=== PATIENT | male | born 1990 | race Caucasian/White ===

== ENCOUNTER 2019-06-24 11:10 | Emergency (ER) | payer BC, OTHER ==
[2019-06-24 11:37] LABS: Urine Appearance Clear; Urine Bilirubin Negative (Negative); Urine Blood Negative (Negative); Urine Color Straw; Urine Glucose Negative (Negative); Urine Ketones Negative (Negative); Urine Nitrite Negative (Negative); Urine Protein Negative (Negative); Urine Specific Gravity 1.003 (1.010-1.030); Urine Urobilinogen Negative (Negative)
--- NOTE | 2019-06-24 11:40 | ED ---
GI/ HPI - HPI Summary HPI Summary: 28-year-old male presents to the emergency department today complaining of gradual onset 1 out of 10 left posterior testicular pain when he noticed 4 days ago. Patient states she is in a long-term monogamous sexual relationship and does use protection. Patient believes he has a hernia although he denies any known recent event of considerable exertion, and has no history of hernia. Patient denies nausea or vomiting, penile discharge, fever, abdominal pain, chest pain, rash, vomiting, diarrhea. - History of Current Complaint Chief Complaint: EDUrogenitalProblems Time Seen by Provider: 06/24/19 11:33 Stated Complaint: TESTICULAR PAIN PER PT Hx Obtained From: Patient Onset/Duration: Started Days Ago Timing: Constant, Lasting Days Severity: Mild Current Severity: Mild Pain Intensity: 1 Additional Locations for Males: Testicles Pain Characteristics: Aching Associated Signs and Symptoms: Negative: Nausea, Vomiting, Hematuria, Flank Pain , New Sexual Partner, UTI Symptoms - Allergy/Home Medications Allergies/Adverse Reactions: Allergies Allergy/AdvReac Type Severity Reaction Status Date / Time erythromycin base Allergy GI Upset Verified 06/24/19 11:14 Home Medications: Home Medications NK [No Home Medications Reported] 11/22/12 [History Confirmed 06/24/19] PMH/Surg Hx/FS Hx/Imm Hx Infectious Disease History: No Infectious Disease History: Denies: Traveled Outside the [place] in Last 30 Days - Social History Alcohol Use: Weekly Substance Use Type: Reports: None Smoking Status (MU): Never Smoked Tobacco Review of Systems Constitutional: Negative Eyes: Negative ENT: Negative Cardiovascular: Negative Respiratory: Negative Gastrointestinal: Negative Genitourinary: Negative Musculoskeletal: Negative Skin: Negative Neurological/Mental Status: Negative Psychological: Normal All Other Systems Reviewed And Are Negative: Yes Physical Exam - Summary Physical Exam Summary: Physical exam a chaperoned by RNFranchesca. Genitalia was without lesions or obvious deformity. There is no tenderness with palpation of the testicles or evidence of varicocele. Patient complained of mild tenderness with palpation of the inferior posterior aspect of the left testicle. Patient had relief with support of the testicle. Cremasterics reflex present bilaterally. Triage Information Reviewed: Yes Vital Signs On Initial Exam: Initial Vitals Temp Pulse Resp BP Pulse Ox 98.4 F 79 16 163/106 100 06/24/19 11:12 06/24/19 11:12 06/24/19 11:12 06/24/19 11:12 06/24/19 11:12 Vital Signs Reviewed: Yes Appearance: Positive: Well-Appearing, No Pain Distress, Well-Nourished Skin: Positive: Warm, Skin Color Reflects Adequate Perfusion Eyes: Positive: EOMI, VALDEZ ENT: Positive: Hearing grossly normal Respiratory/Lung Sounds: Positive: Clear to Auscultation, Breath Sounds Present Cardiovascular: Positive: RRR, S1, S2 Abdomen Description: Positive: Nontender, Soft Bowel Sounds: Positive: Present Musculoskeletal: Positive: Strength/ROM Intact Neurological: Positive: Sensory/Motor Intact, Alert, Oriented to Person Place, Time, Normal Gait, Facial Symmetry, Speech Normal Psychiatric: Positive: Normal, Affect/Mood Appropriate AVPU Assessment: Alert Procedures - Sedation Patient Received Moderate/Deep Sedation with Procedure: No Diagnostics - Vital Signs Vital Signs Temp Pulse Resp BP Pulse Ox 06/24/19 11:12 98.4 F 79 16 163/106 100 - Laboratory Lab Results: Lab Results 06/24/19 06/24/19 Range/Units 11:15 11:15 Urine Color Straw Urine Appearance Clear Urine pH 8.0 (5-9) Ur Specific [place] 1.003 L (1.010-1.030) Urine Protein Negative (Negative) Urine Ketones Negative (Negative) Urine Blood Negative (Negative) Urine Nitrate Negative (Negative) Urine Bilirubin Negative (Negative) Urine Urobilinogen Negative (Negative) Ur Leukocyte Esterase Negative (Negative) Urine Glucose Negative (Negative) C.trachomatis (Amp Det) Pending N.gonorrhoeae (Amp Det) Pending Lab Statement: Any lab studies that have been ordered have been reviewed, and results considered in the medical decision making process. GIGU Course/Dx - Course Course Of Treatment: Patient was evaluated in the emergency department today for testicular pain. Vitals noted and stable. Testicular exam benign with no evidence of testicular torsion. There is mild tenderness with palpation of the posterior inferior aspect of the left testicle. Testicular ultrasound done which showed evidence of orchitis on the left. Patient urine was collected for gonorrhea and chlamydia testing however patient declined treatment at this time. Patient discharged with outpatient follow-up. Patient will be called with positive results otherwise this is thought to be of viral origin and will resolve on it's own. - Diagnoses Differential Diagnoses - Male: Other - Orchitis, epididymitis, testicular torsion, hernia Provider Diagnoses: Orchitis Discharge ED - Sign-Out/Discharge Documenting (check all that apply): Patient Departure - Discharge Plan Condition: Stable Disposition: HOME Patient Education Materials: Orchitis (ED) Referrals: Care [facility] [Outside] - 5 Days No Primary Care Phys,[facility]OPCP [Primary Care Provider] - Additional Instructions: Please take ibuprofen 600 mg every 6 hours as needed for pain. Supportive underwear such as briefs as they provide some alleviation of symptoms. Orchitis is typically caused by viruses and this will resolve on its own shortly. Please return to activity as tolerated. Please follow-up with [facility] in 5 days for further evaluation and management if needed. - Billing Disposition and Condition Condition: STABLE Disposition: Home - Attestation Statements Provider Attestation: I was available for consultation for this patient. I did not evaluate the patient or participate in any medical decision making or disposition decisions unless I am specifically named in the chart as having consulted on the patient. If I have consulted on the patient, please see my own ED note on the patient encounter. Xenia Dumont MD
[2019-06-24 14:25] VITALS: BP 116/77
[2019-06-25 13:19] LABS: Chlamydia trachomatis NAA Negative (Negative); Neisseria gonorrhoeae (GC) NAA Negative (Negative)
== END 2019-06-24 14:24 | disposition home or self-care (01) ==
LOC: ED 11:10
DX: N45.2 Orchitis (principal); Z88.1 Allergy status to other antibiotic agents
CPT/HCPCS: 76870; 81003; 87491; 87591; 99282